=== PATIENT | female | born 1955 | race Caucasian/White ===

== ENCOUNTER 2024-03-19 10:24 | Outpatient (CLI) | payer MEDICARE, BC, SELFPAY | END 2024-03-19 10:25 | disposition home or self-care (01) | LOC: WOUND 10:34 | PROVIDERS: PCP Nurse Practitioner Family; Visit Provider Nurse Practitioner Family | DX: I89.0 Lymphedema, not elsewhere classified (principal); L97.812 Non-pressure chronic ulcer of other part of right lower leg with fat layer exposed; L97.821 Non-pressure chronic ulcer of other part of left lower leg limited to breakdown of skin; E66.01 Morbid (severe) obesity due to excess calories; Z68.42 Body mass index [BMI] 45.0-49.9, adult | CPT/HCPCS: 11042; G0463 ==

== ENCOUNTER 2024-03-26 14:55 | Outpatient (CLI) | payer MEDICARE, BC, SELFPAY | END 2024-03-26 14:56 | disposition home or self-care (01) | LOC: WOUND 14:55 | PROVIDERS: PCP Nurse Practitioner Family; Visit Provider Nurse Practitioner Family | DX: I89.0 Lymphedema, not elsewhere classified (principal); L97.812 Non-pressure chronic ulcer of other part of right lower leg with fat layer exposed | CPT/HCPCS: 11042 ==

== ENCOUNTER 2024-04-02 14:51 | Outpatient (CLI) | payer MEDICARE, BC, SELFPAY | END 2024-04-02 14:52 | disposition home or self-care (01) | LOC: WOUND 14:51 | PROVIDERS: PCP Nurse Practitioner Family; Visit Provider Physician Assistant | DX: I89.0 Lymphedema, not elsewhere classified (principal); L97.812 Non-pressure chronic ulcer of other part of right lower leg with fat layer exposed | CPT/HCPCS: 97597 ==

== ENCOUNTER 2024-04-16 13:19 | Outpatient (CLI) | payer MEDICARE, BC, SELFPAY | END 2024-04-16 13:20 | disposition home or self-care (01) | LOC: WOUND 13:20 | PROVIDERS: PCP Nurse Practitioner Family; Visit Provider Nurse Practitioner Family | DX: I89.0 Lymphedema, not elsewhere classified (principal); L97.818 Non-pressure chronic ulcer of other part of right lower leg with other specified severity; E66.01 Morbid (severe) obesity due to excess calories; Z68.42 Body mass index [BMI] 45.0-49.9, adult | CPT/HCPCS: 11042; 97605 ==

== ENCOUNTER 2024-04-23 13:37 | Outpatient (CLI) | payer MEDICARE, BC, SELFPAY | END 2024-04-23 13:38 | disposition home or self-care (01) | LOC: WOUND 13:37 | PROVIDERS: PCP Nurse Practitioner Family; Visit Provider Nurse Practitioner Family | DX: I89.0 Lymphedema, not elsewhere classified (principal); L97.812 Non-pressure chronic ulcer of other part of right lower leg with fat layer exposed | CPT/HCPCS: 11042; 97605 ==

== ENCOUNTER 2024-04-30 14:44 | Outpatient (CLI) | payer MEDICARE, BC, SELFPAY | END 2024-04-30 14:45 | disposition home or self-care (01) | LOC: WOUND 14:44 | PROVIDERS: PCP Nurse Practitioner Family; Visit Provider Nurse Practitioner Family | DX: I89.0 Lymphedema, not elsewhere classified (principal); L97.812 Non-pressure chronic ulcer of other part of right lower leg with fat layer exposed | CPT/HCPCS: 11042; 97605 ==

== ENCOUNTER 2024-05-14 13:30 | Outpatient (CLI) | payer MEDICARE, BC, SELFPAY | END 2024-05-14 13:31 | disposition home or self-care (01) | LOC: WOUND 05-18 12:01 | PROVIDERS: PCP Nurse Practitioner Family; Visit Provider Nurse Practitioner Family | DX: I89.0 Lymphedema, not elsewhere classified (principal); L97.812 Non-pressure chronic ulcer of other part of right lower leg with fat layer exposed | CPT/HCPCS: 11042 ==

== ENCOUNTER 2024-05-21 13:32 | Outpatient (CLI) | payer MEDICARE, BC, SELFPAY | END 2024-05-21 13:33 | disposition home or self-care (01) | LOC: WOUND 13:32 | PROVIDERS: PCP Nurse Practitioner Family; Visit Provider Nurse Practitioner Family | DX: I89.0 Lymphedema, not elsewhere classified (principal); L97.812 Non-pressure chronic ulcer of other part of right lower leg with fat layer exposed | CPT/HCPCS: 11042; 87070; 87186 ==

== ENCOUNTER 2024-05-28 08:14 | Outpatient (CLI) | payer MEDICARE, BC, SELFPAY | END 2024-05-28 08:15 | disposition home or self-care (01) | LOC: WOUND 06-23 16:59 | PROVIDERS: PCP Nurse Practitioner Family; Visit Provider Nurse Practitioner Family | DX: I89.0 Lymphedema, not elsewhere classified (principal); L97.812 Non-pressure chronic ulcer of other part of right lower leg with fat layer exposed | CPT/HCPCS: 11042 ==

== ENCOUNTER 2024-06-04 14:47 | Outpatient (CLI) | payer MEDICARE, BC, SELFPAY | END 2024-06-04 14:48 | disposition home or self-care (01) | LOC: WOUND 14:47 | PROVIDERS: PCP Nurse Practitioner Family; Visit Provider Nurse Practitioner Family | DX: I89.0 Lymphedema, not elsewhere classified (principal); L97.818 Non-pressure chronic ulcer of other part of right lower leg with other specified severity | CPT/HCPCS: 11043; 96372; 97605; J0696 ==

== ENCOUNTER 2024-06-11 15:02 | Outpatient (CLI) | payer MEDICARE, BC, SELFPAY | END 2024-06-11 15:03 | disposition home or self-care (01) | LOC: WOUND 15:02 | PROVIDERS: PCP Nurse Practitioner Family; Visit Provider Nurse Practitioner Family | DX: I89.0 Lymphedema, not elsewhere classified (principal); L97.818 Non-pressure chronic ulcer of other part of right lower leg with other specified severity | CPT/HCPCS: 11042; 97605 ==

== ENCOUNTER 2024-06-18 14:59 | Outpatient (CLI) | payer MEDICARE, BC, SELFPAY | END 2024-06-18 15:00 | disposition home or self-care (01) | LOC: WOUND 14:59 | PROVIDERS: PCP Nurse Practitioner Family; Visit Provider Nurse Practitioner Family | DX: I89.0 Lymphedema, not elsewhere classified (principal); L97.818 Non-pressure chronic ulcer of other part of right lower leg with other specified severity | CPT/HCPCS: 11043; 97605 ==

== ENCOUNTER 2024-06-25 15:03 | Outpatient (CLI) | payer MEDICARE, BC, SELFPAY | END 2024-06-25 15:04 | disposition home or self-care (01) | LOC: WOUND 15:04 | PROVIDERS: PCP Nurse Practitioner Family; Visit Provider Nurse Practitioner Family | DX: I89.0 Lymphedema, not elsewhere classified (principal); L97.818 Non-pressure chronic ulcer of other part of right lower leg with other specified severity | CPT/HCPCS: 11042; 97605 ==

== ENCOUNTER 2024-07-02 12:49 | Outpatient (CLI) | payer MEDICARE, BC, SELFPAY | END 2024-07-02 12:50 | disposition home or self-care (01) | LOC: WOUND 12:49 | PROVIDERS: PCP Nurse Practitioner Family; Visit Provider Nurse Practitioner Family | DX: I89.0 Lymphedema, not elsewhere classified (principal); L97.818 Non-pressure chronic ulcer of other part of right lower leg with other specified severity | CPT/HCPCS: 15271; 97605; Q4201 ==

== ENCOUNTER 2024-07-09 14:32 | Outpatient (CLI) | payer MEDICARE, BC, SELFPAY | END 2024-07-09 14:33 | disposition home or self-care (01) | LOC: WOUND 14:33 | PROVIDERS: PCP Nurse Practitioner Family; Visit Provider Nurse Practitioner Family | DX: I89.0 Lymphedema, not elsewhere classified (principal); L97.818 Non-pressure chronic ulcer of other part of right lower leg with other specified severity | CPT/HCPCS: 11042; 97605 ==

== ENCOUNTER 2024-07-16 14:09 | Outpatient (CLI) | payer MEDICARE, BC, SELFPAY | END 2024-07-16 14:10 | disposition home or self-care (01) | LOC: WOUND 14:09 | PROVIDERS: PCP Nurse Practitioner Family; Visit Provider Nurse Practitioner Family | DX: I89.0 Lymphedema, not elsewhere classified (principal); L97.818 Non-pressure chronic ulcer of other part of right lower leg with other specified severity | CPT/HCPCS: 11042; 97605 ==

== ENCOUNTER 2024-07-23 15:01 | Outpatient (CLI) | payer MEDICARE, BC, SELFPAY | END 2024-07-23 15:02 | disposition home or self-care (01) | LOC: WOUND 15:05 | PROVIDERS: PCP Nurse Practitioner Family; Visit Provider Nurse Practitioner Family | DX: I89.0 Lymphedema, not elsewhere classified (principal); L97.818 Non-pressure chronic ulcer of other part of right lower leg with other specified severity | CPT/HCPCS: 15271; 97605; Q4201 ==

== ENCOUNTER 2024-07-30 14:24 | Outpatient (CLI) | payer MEDICARE, BC, SELFPAY | END 2024-07-30 14:25 | disposition home or self-care (01) | LOC: WOUND 14:24 | PROVIDERS: PCP Nurse Practitioner Family; Visit Provider Family Medicine | DX: I89.0 Lymphedema, not elsewhere classified (principal); L97.818 Non-pressure chronic ulcer of other part of right lower leg with other specified severity; L30.9 Dermatitis, unspecified | CPT/HCPCS: 11042 ==

== ENCOUNTER 2024-08-05 10:19 | Outpatient (CLI) | payer MEDICARE, BC, SELFPAY | END 2024-08-05 10:20 | disposition home or self-care (01) | LOC: WOUND 10:19 | PROVIDERS: PCP Nurse Practitioner Family; Visit Provider Nurse Practitioner Family | DX: I89.0 Lymphedema, not elsewhere classified (principal); L97.818 Non-pressure chronic ulcer of other part of right lower leg with other specified severity | CPT/HCPCS: 15271; Q4201 ==

== ENCOUNTER 2024-08-13 14:44 | Outpatient (CLI) | payer MEDICARE, BC, SELFPAY | END 2024-08-13 14:45 | disposition home or self-care (01) | LOC: WOUND 14:44 | PROVIDERS: PCP Nurse Practitioner Family; Visit Provider Nurse Practitioner Family | DX: I89.0 Lymphedema, not elsewhere classified (principal); L97.818 Non-pressure chronic ulcer of other part of right lower leg with other specified severity | CPT/HCPCS: 11042 ==

== ENCOUNTER 2024-08-20 10:58 | Outpatient (CLI) | payer MEDICARE, BC, SELFPAY | END 2024-08-20 10:59 | disposition home or self-care (01) | LOC: WOUND 10:59 | PROVIDERS: PCP Nurse Practitioner Family; Visit Provider Nurse Practitioner Family | DX: I89.0 Lymphedema, not elsewhere classified (principal); L97.818 Non-pressure chronic ulcer of other part of right lower leg with other specified severity | CPT/HCPCS: 15271; Q4201 ==

== ENCOUNTER 2024-08-27 11:00 | Outpatient (CLI) | payer MEDICARE, BC, SELFPAY | END 2024-08-27 11:01 | disposition home or self-care (01) | LOC: WOUND 11:00 | PROVIDERS: PCP Nurse Practitioner Family; Visit Provider Nurse Practitioner Family | DX: I89.0 Lymphedema, not elsewhere classified (principal); L97.818 Non-pressure chronic ulcer of other part of right lower leg with other specified severity; E66.01 Morbid (severe) obesity due to excess calories; Z68.42 Body mass index [BMI] 45.0-49.9, adult | CPT/HCPCS: G0463 ==

== ENCOUNTER 2024-09-03 10:39 | Outpatient (CLI) | payer MEDICARE, BC, SELFPAY | END 2024-09-03 10:40 | disposition home or self-care (01) | LOC: WOUND 10:40 | PROVIDERS: PCP Nurse Practitioner Family; Visit Provider Nurse Practitioner Family | DX: I89.0 Lymphedema, not elsewhere classified (principal); L97.818 Non-pressure chronic ulcer of other part of right lower leg with other specified severity | CPT/HCPCS: 15271; Q4201 ==

== ENCOUNTER 2024-09-17 10:18 | Outpatient (CLI) | payer MEDICARE, BC, SELFPAY | END 2024-09-17 10:19 | disposition home or self-care (01) | LOC: WOUND 10:19 | PROVIDERS: PCP Nurse Practitioner Family; Visit Provider Nurse Practitioner Family | DX: I89.0 Lymphedema, not elsewhere classified (principal); L97.818 Non-pressure chronic ulcer of other part of right lower leg with other specified severity | CPT/HCPCS: 11042 ==

== ENCOUNTER 2024-09-24 10:24 | Outpatient (CLI) | payer MEDICARE, BC, SELFPAY | END 2024-09-24 10:25 | disposition home or self-care (01) | PROVIDERS: PCP Nurse Practitioner Family; Visit Provider Nurse Practitioner Family | DX: I89.0 Lymphedema, not elsewhere classified (principal); L97.818 Non-pressure chronic ulcer of other part of right lower leg with other specified severity | CPT/HCPCS: 15271; Q4201 ==

== ENCOUNTER 2024-10-15 10:27 | Outpatient (CLI) | payer MEDICARE, BC, SELFPAY | END 2024-10-15 10:28 | disposition home or self-care (01) | LOC: WOUND 10:28 | PROVIDERS: PCP Nurse Practitioner Family; Visit Provider Nurse Practitioner Family | DX: I89.0 Lymphedema, not elsewhere classified (principal); L97.818 Non-pressure chronic ulcer of other part of right lower leg with other specified severity | CPT/HCPCS: 97597 ==

== ENCOUNTER 2024-10-22 10:24 | Outpatient (CLI) | payer MEDICARE, BC, SELFPAY | END 2024-10-22 10:25 | disposition home or self-care (01) | LOC: WOUND 10:25 | PROVIDERS: PCP Nurse Practitioner Family; Visit Provider Nurse Practitioner Family | DX: I89.0 Lymphedema, not elsewhere classified (principal); L97.811 Non-pressure chronic ulcer of other part of right lower leg limited to breakdown of skin; E66.01 Morbid (severe) obesity due to excess calories; Z68.42 Body mass index [BMI] 45.0-49.9, adult | CPT/HCPCS: G0463 ==

== ENCOUNTER 2024-10-29 10:39 | Outpatient (CLI) | payer MEDICARE, BC, SELFPAY | END 2024-10-29 10:40 | disposition home or self-care (01) | LOC: WOUND 10:40 | PROVIDERS: PCP Nurse Practitioner Family; Visit Provider Nurse Practitioner Family | DX: I89.0 Lymphedema, not elsewhere classified (principal); E66.01 Morbid (severe) obesity due to excess calories; Z68.42 Body mass index [BMI] 45.0-49.9, adult | CPT/HCPCS: G0463 ==